=== PATIENT | female | born 1980 | race Caucasian/White ===

== ENCOUNTER 2021-05-04 07:12 | Outpatient (CLI) | payer MEDICARE ==
--- NOTE | 2021-05-05 16:00 | Mammography Report ---
DIGITAL SCREENING MAMMOGRAM WITH CAD, 05/04/2021 CLINICAL INFORMATION / INDICATION: Routine screening mammography. TECHNIQUE: Digital bilateral 2D mammography was obtained in the craniocaudal and mediolateral obliqu e projections. This examination was interpreted with the benefit of Computer-Aided Detection analysis . COMPARISON: This is the patient's baseline mammogram. FINDINGS: Breast Density: There are scattered areas of fibroglandular density. No dominant mass, suspicious calcifications, or architectural distortion in the right breast. There is focal asymmetry in the left breast upper outer quadrant, middle depth. This will require fur ther evaluation with spot compression imaging and possibly left breast ultrasound. IMPRESSION: Left breast focal asymmetry, upper outer quadrant. Recommend spot compression views. If a symmetry persists, targeted left breast ultrasound should be performed. Follow up recommendation: Special View: Spot BI-RADS Category 0: Incomplete. Needs additional imaging evaluation and/or prior mammograms for jarrod cedeño. A "normal" or negative report should not discourage follow up or biopsy of a clinically significant f inding. A written summary of these findings will be mailed to the patient. The patient will be entered into a mammography reporting system which will generate a reminder letter for the patient's next appointmen t at the appropriate interval. The [employer] recommends yearly mammograms starting at age 40 and continuing as l lyndsay as a woman is in good health. Breast MRI is recommended for women with an approximate 20-25% or greater lifetime risk of breast cancer, including women with a strong family history of breast or ova kirsten cancer or who have been treated for Hodgkin's disease. Signer Name: Taylor Beth MD Signed: 05/05/2021 3:55 PM Workstation Name: [email or web address]
== END 2021-05-04 07:13 | disposition home or self-care (01) ==
LOC: MAMMO 07:12
DX: Z12.31 Encounter for screening mammogram for malignant neoplasm of breast (principal); N64.89 Other specified disorders of breast
CPT/HCPCS: 77067